=== PATIENT | male | born 1990 | race Caucasian/White ===

== ENCOUNTER 2024-05-11 16:23 | Emergency (ER) | payer OTHER, SELFPAY ==
[2024-05-11 16:30] VITALS: BP 130/84; PULSE 56; RESP 18; TEMP 36.7; O2SAT 99; BMI 29.4
--- NOTE | 2024-05-11 16:37 | DI.RAD.S_ITS ---
PROCEDURE: XR FOOT RT MIN 3V INDICATIONS: heavy object fell onto foot, broken skin, pain TECHNIQUE: 3 views of the foot were acquired. COMPARISON: None. FINDINGS: Bones: Somewhat shattered appearance of the distal phalanx of the great toe with extension to the IP joint. Comminuted fracture of the distal phalanx of the 2nd toe with involvement of the DIP joint. No suspicious bony lesions. Soft tissues: No tibiotalar joint effusion. Achilles tendon appears normal. IMPRESSION: Comminuted fractures of the distal phalanges of the 1st and 2nd toes with involvement of the DIP joints. Dictated by: Villa Naik M.D. on 05/11/2024 at 17:06 Approved by: Villa Naik M.D. on 05/11/2024 at 17:12
[2024-05-11] MEDS: LIDOCAINE 2% INJ MDV 20ML 20 ML INJ (16:57)
--- NOTE | 2024-05-11 17:05 | ED.WOUNDLAC ---
HPI - Wound/Laceration General Chief Complaint: Wound/Laceration Stated Complaint: toe lacerations, drop metal on foot Time Seen by Provider: 05/11/24 16:33 Source: patient Mode of arrival: Wheelchair History of Present Illness HPI narrative: Patient is a 34-year-old male here for evaluation of injuries to his right great and 2nd toe. He stated that just prior to arrival he had a piece of exercise equipment fall over and land directly on his toes. Has disruption of the toenail of the 1st and 2nd toes and bleeding from this area. Has had discomfort with walking. No other injuries from the event. No interventions prior to arrival. Related Data Previous Rx's Medication Instructions Recorded cephalexin 500 mg capsule 500 mg PO QID 7 days #28 caps 05/11/24 hydrocodone 5 mg-acetaminophen 325 1 tab PO Q6H PRN pain #10 tabs 05/11/24 mg tablet Allergies Allergy/AdvReac Type Severity Reaction Status Date / Time No Known Drug Allergies Allergy Verified 05/11/24 16:30 Review of Systems Constitutional Constitutional: Reports system reviewed and no additional complaints, except as documented Musculoskeletal Musculoskeletal: Reports system reviewed and no additional complaints, except as documented Integumentary/Breasts Skin/Breast: Reports system reviewed and no additional complaints, except as documented Patient History Social History Smoking Status: Never smoker Smoking Status: Never smoker Substance Use Type: marijuana Exam Initial Vital Signs Initial Vital Signs: Vital Signs Temperature 98.0 F 05/11/24 16:30 Pulse Rate 56 L 05/11/24 16:30 Respiratory Rate 18 05/11/24 16:30 Blood Pressure 130/84 05/11/24 16:30 Pulse Oximetry 99 05/11/24 16:30 Oxygen Delivery Method Room Air 05/11/24 16:30 Cardio Pulses: dorsalis pedis present on the right Skin Other: Great toe right foot: Irregular laceration involving the nail bed. Stellate in appearance. Oozing of blood Second toe right foot (linear laceration involving nail bed. Neuro Sensory Exam: no sensory deficits noted Extrem Other: Obvious deformity to distal right great and 2nd toe. Procedures Laceration Repair Laceration 1: Site: other (Great toe) Side (If applicable): right Size (cm): 5 Description: stellate and irregular Depth: simple, single layer Local Anesthetic: lidocaine 1% (Digital block) Pre-repair: wound explored and irrigated extensively Skin layer closed with: nylon Skin layer suture size: 4-0 Technique: simple, interrupted Laceration 2: Site: other (Second toe) Side (If applicable): right Size (cm): 1 Description: linear Depth: simple, single layer Local Anesthetic: lidocaine 1% (Digital block) Pre-repair: wound explored and irrigated extensively Skin layer closed with: nylon Skin layer suture size: 4-0 Number of sutures: 2 Technique: simple, interrupted Nerve Block Nerve Block 1: Local Anesthetic: lidocaine 1% Amount of anesthesia used (mL): 5 Side: right Nerve Blocks: digital (Great toe) Procedure Successful: Yes Patient Tolerated Procedure: Well and No complications Nerve Block 2: Local Anesthetic: lidocaine 1% Amount of anesthesia used (mL): 5 Side: right Nerve Blocks: digital Procedure Successful: Yes Patient Tolerated Procedure: Well and No complications Course Orders Ordered: ED Orders 05/11/24 16:37 XR foot RT min 3V Stat Bacitracin (Bacitracin Oint 0.9 Gm Pckt) 1 applic TOP NOW ONE Stop: 05/11/24 18:00 Discontinued Medications Lidocaine HCl (Lidocaine 2% Inj Mdv 20ml) 20 ml INJ INTRA-OP ONE Stop: 05/11/24 16:39 Last Admin: 05/11/24 16:57 Dose: 20 ml Documented By: SANKET Vital Signs Vital signs: Vital Signs - 8 hr 05/11/24 16:30 Temperature 98.0 F Pulse Rate 56 L Respiratory Rate 18 Blood Pressure 130/84 Pulse Oximetry 99 Oxygen Delivery Method Room Air MDM - Wound/Laceration Imaging Data Extremity x-ray #1: Radiologist's Impression: PROCEDURE: XR FOOT RT MIN 3V INDICATIONS: heavy object fell onto foot, broken skin, pain TECHNIQUE: 3 views of the foot were acquired. COMPARISON: None. FINDINGS: Bones: Somewhat shattered appearance of the distal phalanx of the great toe with extension to the IP joint. Comminuted fracture of the distal phalanx of the 2nd toe with involvement of the DIP joint. No suspicious bony lesions. Soft tissues: No tibiotalar joint effusion. Achilles tendon appears normal. IMPRESSION: Comminuted fractures of the distal phalanges of the 1st and 2nd toes with involvement of the DIP joints. [facility] Narrative Medical decision making narrative: The toenails were removed from the great toe and 2nd toe. The great toe toenail was essentially removed upon arrival just completed the process. The 2nd toe was avulsed at the base of the toe so it was removed and a nail bed laceration was noted underneath. The lacerations were closed as described above. Does have a fracture of the great and 2nd toe. Was placed in a orthopedic shoe. Patient was given care instructions and return precautions. Will start on antibiotics because of the fact that these are open fractures. Patient was given care instructions and return precautions. He expressed understanding and agreement. Discharge Plan Departure Patient Disposition: Home Clinical Impression: Nailbed laceration, toe, Fracture of toe of right foot Instructions: DI for Toe Fracture, DI for Laceration Repair -- Complex Activity Restrictions/Additional Instructions: The stitches that were placed today are going to need to be removed in 10 days. You can go to the walk-in clinic for this. You can use topical antibiotic ointment such as bacitracin. You can take the orthopedic shoe off when you are at home keeping your foot elevated and also when you shower however if you are up walking please wear the shoe. Take the medications as directed. Return to the emergency department for new symptoms. Prescriptions: New hydrocodone-acetaminophen 5-325 mg tablet 1 tab PO Q6H PRN (Reason: pain) Qty: 10 0RF cephalexin 500 mg capsule 500 mg PO QID 7 Days Qty: 28 0RF Referrals: Miscellaneous,Doctor[facility] [Primary Care Provider] - Stand Alone Forms: Patient Portal/API
[2024-05-11] MEDS: BACITRACIN OINT 0.9 GM PCKT 1 APPLIC TOP (18:25)
[2024-05-11 18:39] VITALS: BP 141/79; PULSE 68; O2SAT 98
== END 2024-05-11 18:36 | disposition home or self-care (01) ==
PROVIDERS: Emergency Provider Emergency Medicine
DX: S92.421A Displaced fracture of distal phalanx of right great toe, initial encounter for closed fracture (principal); S91.211A Laceration without foreign body of right great toe with damage to nail, initial encounter; W22.8XXA Striking against or struck by other objects, initial encounter
CPT/HCPCS: 12002; 73630; 99283